=== PATIENT | male | born 1955 | race Caucasian/White ===

== ENCOUNTER 2023-10-30 17:27 | Emergency (ER) | payer MEDICARE, OTHER ==
[~2023-10-30] VITALS: Ht 182.9 cm; Wt 78.0 kg
[2023-10-30 18:01] VITALS: TEMP 98.1
[2023-10-30 18:17] LABS: BASOPHILS % (AUTO) 0.4 % (0.0-2.0); EOSINOPHILS # (AUTO) 0.1 K/uL (0.0-0.7); EOSINOPHILS % (AUTO) 0.5 % (0.0-6.0); HEMATOCRIT 40 % (39-51); HEMOGLOBIN 13.8 g/dL (13.5-17.5); LYMPHOCYTES # (AUTO) 1.2 K/uL (0.8-4.8); LYMPHOCYTES % (AUTO) 11.9 % (20.0-44.0); MEAN CORPUSCULAR HEMOGLOBIN 33 PG (26.0-33.0); MEAN CORPUSCULAR HGB CONC 34 g/dl (31.0-36.0); MEAN CORPUSCULAR VOLUME 95 fL (80-96); MONOCYTES # (AUTO) 0.6 K/uL (0.1-1.30); MONOCYTES % (AUTO) 6.1 % (2.0-12.0); NEUTROPHILS % (AUTO) 81.1 % (43.0-81.0); PLATELET COUNT (AUTO) 222 K/uL (150-450); RED BLOOD CELL COUNT(AUTO) 4.23 MIL/uL (4.5-6.0); RED CELL DISTRIBUTION WIDTH 13.9 % (11.5-15.0); WHITE BLOOD COUNT (AUTO) 9.8 K/uL (4.3-11.0)
[2023-10-30 19:36] LABS: CALCIUM, SERUM 7.3 mg/dL (8.5-10.1); CARBON DIOXIDE 27 mmol/L (21-32); CHLORIDE 104 mmol/L (98-107); GLUCOSE 88 mg/dL (74-106); POTASSIUM 4.3 mmol/L (3.5-5.1); SODIUM SERUM 139 mmol/L (136-145); UREA NITROGEN, BLOOD 16 mg/dL (7-18)
[2023-10-30 19:41] LABS: ALANINE AMINOTRANSFERASE 28 U/L (12-78); ALBUMIN 3.4 g/dL (3.4-5.0); ALCOHOL, BLOOD < 3 mg/dL (0-10); ALKALINE PHOSPHATASE 51 U/L (46-116); ASPARTATE AMINOTRANSFERASE 17 U/L (15-37); BILIRUBIN,DIRECT 0.2 mg/dL (0.0-0.2); BILIRUBIN,TOTAL 0.9 mg/dL (0.2-1.0); TOTAL PROTEIN, SERUM 7.1 g/dL (6.4-8.2)
[2023-10-30 19:42] LABS: ACETAMINOPHEN 0 ug/ml (10-30); SALICYLATE < 2.0 mg/dL (2.8-20.0)
[2023-10-30] MEDS ORDERED: AMOX-430 PO (20:56)
[2023-10-31 00:20] VITALS: BP 17/87; O2SAT 99
== END 2023-10-31 00:21 ==
LOC: ER 17:27
DX: S02.2XXA Fracture of nasal bones, initial encounter for closed fracture (principal); F03.90 Unspecified dementia, unspecified severity, without behavioral disturbance, psychotic disturbance, mood disturbance, and anxiety; I10 Essential (primary) hypertension; J44.9 Chronic obstructive pulmonary disease, unspecified; W18.39XA Other fall on same level, initial encounter; Y93.89 Activity, other specified; Y92.89 Other specified places as the place of occurrence of the external cause; Y99.8 Other external cause status
CPT/HCPCS: 36415; 70450-TC; 70486-TC; 71045-TC; 72125-TC; 80048-TC; 80076-TC; 85025-TC; G0480

== ENCOUNTER 2024-08-23 17:00 | Inpatient (IN) | payer MEDICARE, OTHER ==
[~2024-08-23] VITALS: Ht 180.3 cm; Wt 72.6 kg
[~2024-08-23 17:00] MED LIST: AMOX-430 PO
[2024-08-23 17:37] LABS: BASOPHILS % (AUTO) 0.6 % (0.0-2.0); EOSINOPHILS # (AUTO) 0.4 K/uL (0.0-0.7); EOSINOPHILS % (AUTO) 5.5 % (0.0-6.0); HEMATOCRIT 38 % (39-51); HEMOGLOBIN 12.6 g/dL (13.5-17.5); LYMPHOCYTES # (AUTO) 1.4 K/uL (0.8-4.8); LYMPHOCYTES % (AUTO) 22.1 % (20.0-44.0); MEAN CORPUSCULAR HEMOGLOBIN 32 PG (26.0-33.0); MEAN CORPUSCULAR HGB CONC 34 g/dl (31.0-36.0); MEAN CORPUSCULAR VOLUME 97 fL (80-96); MONOCYTES # (AUTO) 0.4 K/uL (0.1-1.30); MONOCYTES % (AUTO) 6.4 % (2.0-12.0); NEUTROPHILS # (AUTO) 4.2 K/uL (1.8-8.9); NEUTROPHILS % (AUTO) 65.4 % (43.0-81.0); PLATELET COUNT (AUTO) 194 K/uL (150-450); RED BLOOD CELL COUNT(AUTO) 3.89 MIL/uL (4.5-6.0); RED CELL DISTRIBUTION WIDTH 14.5 % (11.5-15.0); WHITE BLOOD COUNT (AUTO) 6.3 K/uL (4.3-11.0)
[2024-08-23 17:52] LABS: CALCIUM, SERUM 8.7 mg/dL (8.5-10.1); CARBON DIOXIDE 28 mmol/L (21-32); CHLORIDE 108 mmol/L (98-107); GLUCOSE 105 mg/dL (74-106); POTASSIUM 4.1 mmol/L (3.5-5.1); SODIUM SERUM 143 mmol/L (136-145); UREA NITROGEN, BLOOD 27 mg/dL (7-18)
[2024-08-23 17:57] LABS: ACETAMINOPHEN <10 ug/ml (10-30); ALANINE AMINOTRANSFERASE 26 U/L (12-78); ALBUMIN 3.3 g/dL (3.4-5.0); ALCOHOL, BLOOD < 3 mg/dL (0-10); ALKALINE PHOSPHATASE 46 U/L (46-116); ASPARTATE AMINOTRANSFERASE 29 U/L (15-37); BILIRUBIN,DIRECT 0.1 mg/dL (0.0-0.2); BILIRUBIN,TOTAL 0.3 mg/dL (0.2-1.0); SALICYLATE < 0.2 mg/dL (2.8-20.0); TOTAL PROTEIN, SERUM 6.7 g/dL (6.4-8.2)
[2024-08-23] MEDS ORDERED: PANT40TA2 PO (18:04)
[2024-08-23] MEDS ORDERED: RISP1TAB7 PO (18:04)
[2024-08-23] MEDS ORDERED: BENZ1TAB7 PO (18:04)
[2024-08-23] MEDS ORDERED: RISP2TAB5 PO (18:04)
[2024-08-23] MEDS ORDERED: MULT-754 PO (18:04)
[2024-08-23] MEDS ORDERED: CLON0.5T4 PO (18:04)
[2024-08-23] MEDS ORDERED: LOPE2CAP40 PO (18:04)
[2024-08-23] MEDS ORDERED: ACET-868 PO (18:04)
[2024-08-23] MEDS ORDERED: DIVA-78 PO (18:04)
[2024-08-23] MEDS ORDERED: DIPH25TA25 PO (18:04)
[2024-08-23] MEDS: OLANZAPINE 10 MG VIAL IM ONE (19:30)
[2024-08-23] MEDS ORDERED: OLANZAPINE 10 MG VIAL IM ONE (19:32)
[2024-08-23 19:34] LABS: APPEARANCE,URINE SLIGHTLY CLOUDY (CLEAR); BILIRUBIN,URINE NEGATIVE (NEGATIVE); BLOOD, URINE TRACE-INTA Ery/uL (NEGATIVE); COLOR,URINE YELLOW (YELLOW); KETONES,URINE NEGATIVE (NEGATIVE); LEUKOCYTE ESTERASE ,URINE NEGATIVE (NEGATIVE); NITRITE, URINE NEGATIVE (NEGATIVE); PH,URINE 7.5 (5.0-8.0); PROTEIN,URINE NEGATIVE (NEGATIVE); UGLUCOSE NEGATIVE (NEGATIVE)
[2024-08-23 19:40] LABS: ADD URINE CULTURE NO; BACTERIA,URINE None seen /HPF (None Seen); SQUAMOUS EPITHELIAL CELL,UR 0-2 /HPF (None Seen); URINE AMORPHOUS PHOSPHATES Few /HPF (None Seen); WBC,URINE 0-2 /HPF (0-3)
[2024-08-23 19:44] LABS: AMPHETAMINE, URINE NEGATIVE (NEGATIVE); BARBITURATE, URINE NEGATIVE (NEGATIVE); BENZODIAZEPINE, URINE NEGATIVE (NEGATIVE); CANNABINOID, URINE NEGATIVE (NEGATIVE); COCCAINE, URINE NEGATIVE (NEGATIVE); OPIATE, URINE NEGATIVE (NEGATIVE); PHENCYCLIDINE SCREEN,URINE NEGATIVE (NEGATIVE)
[2024-08-24] MEDS ORDERED: MAGNESIUM HYDROXIDE 30 ML UDC PO PRN (00:30)
[2024-08-24] MEDS ORDERED: MAG HYDROX/AL HYDROX/SIMETH 30 ML UDC PO PRN (00:30)
[2024-08-24] MEDS ORDERED: LORAZEPAM 0.5 MG TABLET PO PRN (00:30)
[2024-08-24] MEDS ORDERED: TEMAZEPAM 7.5 MG CAPSULE PO PRN (00:30)
[2024-08-24 01:23] VITALS: BP 129/86; TEMP 98; O2SAT 98
[2024-08-24] MEDS: BLOOD SUGAR DIAGNOSTIC 1 EACH STRIP IN ONE (01:52)
[2024-08-24] MEDS ORDERED: PERMETHRIN 5% CRM 60 GM TUBE TP ONE (05:30)
[2024-08-24 08:00] VITALS: BP 166/71; TEMP 97.6; O2SAT 96
[2024-08-24] MEDS: OLANZAPINE 10 MG VIAL IM ONE (08:16)
[2024-08-24] MEDS: MULTIVIT W/MINERALS 1 TAB TABLET PO SCH (09:00)
[2024-08-24] MEDS: PERMETHRIN 5% CRM 60 GM TUBE TP ONE (09:00)
[2024-08-24] MEDS: PANTOPRAZOLE 40 MG TABLET.DR PO SCH (09:00)
[2024-08-24] MEDS: LORAZEPAM 0.5 MG TABLET PO PRN (14:00)
[2024-08-24] MEDS ORDERED: clonazePAM 0.5 MG TABLET PO PRN (14:30)
[2024-08-24] MEDS: DIVALPROEX SODIUM 500 MG TABLET.DR PO SCH (14:33)
[2024-08-24 16:00] VITALS: BP 119/77; TEMP 97.8; O2SAT 95
[2024-08-24] MEDS: risperiDONE 1 MG TABLET PO SCH ×2 (16:47→21:15)
[2024-08-24] MEDS: clonazePAM 0.5 MG TABLET PO SCH (16:48)
[2024-08-24 20:00] VITALS: BP 113/86; TEMP 97.9; O2SAT 98
[2024-08-25 08:00] VITALS: BP 188/96; TEMP 97.8; O2SAT 97
[2024-08-25 08:27] LABS: BASOPHILS % (AUTO) 0.4 % (0.0-2.0); EOSINOPHILS # (AUTO) 0.2 K/uL (0.0-0.7); EOSINOPHILS % (AUTO) 2.7 % (0.0-6.0); HEMATOCRIT 41 % (39-51); HEMOGLOBIN 13.6 g/dL (13.5-17.5); LYMPHOCYTES # (AUTO) 1.6 K/uL (0.8-4.8); LYMPHOCYTES % (AUTO) 20.5 % (20.0-44.0); MEAN CORPUSCULAR HEMOGLOBIN 32 PG (26.0-33.0); MEAN CORPUSCULAR HGB CONC 33 g/dl (31.0-36.0); MEAN CORPUSCULAR VOLUME 97 fL (80-96); MONOCYTES # (AUTO) 0.6 K/uL (0.1-1.30); MONOCYTES % (AUTO) 7.7 % (2.0-12.0); NEUTROPHILS # (AUTO) 5.5 K/uL (1.8-8.9); NEUTROPHILS % (AUTO) 68.7 % (43.0-81.0); PLATELET COUNT (AUTO) 236 K/uL (150-450); RED BLOOD CELL COUNT(AUTO) 4.26 MIL/uL (4.5-6.0); RED CELL DISTRIBUTION WIDTH 14.6 % (11.5-15.0)
[2024-08-25 08:45] LABS: CREATININE 0.9 mg/dL (0.6-1.3); POTASSIUM 3.9 mmol/L (3.5-5.1)
[2024-08-25 16:00] VITALS: BP 127/84; TEMP 98; O2SAT 100
[2024-08-25] MEDS: DIVALPROEX SODIUM 125 MG CAP.SPRINK PO SCH (16:46)
[2024-08-25 21:15] VITALS: BP_SYST 112; BP_SYST 118; BP_DIAS 59; BP_DIAS 68; TEMP 98.2; O2SAT 99
[2024-08-26 08:00] VITALS: BP 106/77; TEMP 97.8; O2SAT 100
[2024-08-26] MEDS: MIDODRINE HCL (5MG) 5 MG TABLET PO SCH (13:21)
[2024-08-26 16:00] VITALS: BP 110/80; TEMP 97.8; O2SAT 96
[2024-08-26] MEDS: LORAZEPAM 0.5 MG TABLET PO PRN (16:45)
[2024-08-26 20:19] VITALS: BP 123/82; TEMP 97.9; O2SAT 97
[2024-08-26] MEDS: MUPIROCIN OINT 2% 22 GM TUBE NS SCH (21:00)
[2024-08-26] MEDS: TEMAZEPAM 7.5 MG CAPSULE PO PRN (21:18)
[2024-08-27 08:00] VITALS: BP 115/76; TEMP 98; O2SAT 100
[2024-08-27 15:38] VITALS: BP 104/74; TEMP 98.7; O2SAT 98
[2024-08-27 20:00] VITALS: BP 150/100; TEMP 98.6; O2SAT 97
[2024-08-28 08:00] VITALS: BP 150/90; TEMP 97.8; O2SAT 98
[2024-08-28 16:00] VITALS: BP_SYST 128; TEMP 97.8; O2SAT 99
[2024-08-28 20:05] VITALS: BP 124/77; TEMP 97.9; O2SAT 96
[2024-08-29 16:23] VITALS: BP 129/74; TEMP 97.9; O2SAT 99
[2024-08-29 20:00] VITALS: BP 138/81; TEMP 98; O2SAT 100
[2024-08-30 08:00] VITALS: BP 118/71; TEMP 97.9; O2SAT 100
[2024-08-30 16:00] VITALS: BP 113/74; TEMP 98.7; O2SAT 100
[2024-08-30] MEDS: OLANZAPINE 2.5 MG TABLET PO SCH (17:18)
[2024-08-30 20:00] VITALS: BP 104/76; TEMP 98.1; O2SAT 100
[2024-08-30 20:42] VITALS: BP 104/76; TEMP 98.1; O2SAT 100
[2024-08-30] MEDS: OLANZAPINE 10 MG TABLET PO SCH (21:59)
[2024-08-31 08:00] VITALS: BP 128/71; TEMP 97.8; O2SAT 96
[2024-08-31] MEDS: NEOMY SULF/BACITRAC ZN/POLY 15 GM TUBE TP SCH (08:42)
[2024-08-31] MEDS: Z GUARD REMEDY 4 OZ OINT TP PRN (08:42)
[2024-08-31] MEDS: VITAMINS A AND D 56.7 GM TUBE TP SCH (08:43)
[2024-08-31 16:00] VITALS: BP 129/75; TEMP 98; O2SAT 100
[2024-08-31 19:55] VITALS: BP 122/73; TEMP 98.2; O2SAT 97
[2024-09-01 08:00] VITALS: BP 105/80; TEMP 98.1; O2SAT 99
[2024-09-01 16:00] VITALS: BP 128/72; TEMP 97.7; O2SAT 99
[2024-09-01 20:14] VITALS: BP 120/76; TEMP 98; O2SAT 98
[2024-09-01] MEDS: OLANZAPINE 5 MG TABLET PO SCH (21:35)
[2024-09-02 08:00] VITALS: BP 119/78; TEMP 97.8; O2SAT 100
[2024-09-02] MEDS: OLANZAPINE 5 MG TABLET PO SCH (13:01)
[2024-09-02 16:02] VITALS: BP 103/77; TEMP 97.6; O2SAT 98
[2024-09-02 22:50] VITALS: BP 127/83; TEMP 99.6
[2024-09-02 22:52] VITALS: BP 127/83; TEMP 97.6; O2SAT 98
[2024-09-03] MEDS: ACETAMINOPHEN 325 MG TABLET PO PRN (01:45)
[2024-09-03 08:00] VITALS: BP 130/69; TEMP 98.6; O2SAT 100
[2024-09-03 15:10] VITALS: BP 100/63; TEMP 98.6; O2SAT 98
[2024-09-03 20:00] VITALS: BP 147/90; TEMP 98; O2SAT 96
[2024-09-03 20:03] VITALS: BP 147/90; TEMP 98; O2SAT 96
[2024-09-04 08:00] VITALS: BP 126/51; TEMP 97.5; O2SAT 100
[2024-09-04 16:00] VITALS: BP 134/85; TEMP 98; O2SAT 98
[2024-09-04 19:52] VITALS: BP 136/95; TEMP 98.3; O2SAT 97
[2024-09-05 07:28] LABS: BASOPHILS # (AUTO) 0.1 K/uL (0.0-0.2); BASOPHILS % (AUTO) 0.8 % (0.0-2.0); EOSINOPHILS # (AUTO) 0.2 K/uL (0.0-0.7); EOSINOPHILS % (AUTO) 3.4 % (0.0-6.0); HEMATOCRIT 38 % (39-51); HEMOGLOBIN 12.7 g/dL (13.5-17.5); LYMPHOCYTES # (AUTO) 1.4 K/uL (0.8-4.8); LYMPHOCYTES % (AUTO) 20.3 % (20.0-44.0); MEAN CORPUSCULAR HEMOGLOBIN 33 PG (26.0-33.0); MEAN CORPUSCULAR HGB CONC 34 g/dl (31.0-36.0); MEAN CORPUSCULAR VOLUME 96 fL (80-96); MONOCYTES # (AUTO) 0.6 K/uL (0.1-1.30); MONOCYTES % (AUTO) 8.5 % (2.0-12.0); NEUTROPHILS # (AUTO) 4.7 K/uL (1.8-8.9); PLATELET COUNT (AUTO) 311 K/uL (150-450); RED CELL DISTRIBUTION WIDTH 13.6 % (11.5-15.0)
[2024-09-05 07:40] LABS: ALBUMIN 3.1 g/dL (3.4-5.0); BILIRUBIN,TOTAL 0.4 mg/dL (0.2-1.0); CALCIUM, SERUM 9.2 mg/dL (8.5-10.1); CREATININE 0.9 mg/dL (0.6-1.3); POTASSIUM 3.9 mmol/L (3.5-5.1); TOTAL PROTEIN, SERUM 7.4 g/dL (6.4-8.2)
[2024-09-05 08:00] VITALS: BP 136/74; TEMP 98.7; O2SAT 98
[2024-09-05 08:38] VITALS: BP 136/74
== END 2024-09-05 13:30 | DRG 885 ==
LOC: ER 17:04 → GPS 22:49
PROVIDERS: ADMIT Psychiatry & Neurology Psychosomatic Medicine; ATTEND Nurse Practitioner Acute Care
DX: F25.0 Schizoaffective disorder, bipolar type (principal); N18.9 Chronic kidney disease, unspecified; E44.1 Mild protein-calorie malnutrition; F03.918 Unspecified dementia, unspecified severity, with other behavioral disturbance; F03.94 Unspecified dementia, unspecified severity, with anxiety; G93.40 Encephalopathy, unspecified; F29 Unspecified psychosis not due to a substance or known physiological condition; D64.9 Anemia, unspecified; F41.9 Anxiety disorder, unspecified; I12.9 Hypertensive chronic kidney disease with stage 1 through stage 4 chronic kidney disease, or unspecified chronic kidney disease; E78.5 Hyperlipidemia, unspecified; K21.9 Gastro-esophageal reflux disease without esophagitis; J44.9 Chronic obstructive pulmonary disease, unspecified; F32.A Depression, unspecified; G47.00 Insomnia, unspecified; B86 Scabies; E88.09 Other disorders of plasma-protein metabolism, not elsewhere classified; L85.3 Xerosis cutis; Z79.899 Other long term (current) drug therapy; Z88.0 Allergy status to penicillin; S01.81XA Laceration without foreign body of other part of head, initial encounter; X58.XXXA Exposure to other specified factors, initial encounter; W19.XXXA Unspecified fall, initial encounter; Y92.009 Unspecified place in unspecified non-institutional (private) residence as the place of occurrence of the external cause
CPT/HCPCS: 36415; 80048-TC; 80053-TC; 80061-TC; 80076-TC; 80164-TC; 81001; 82962-TC; 85025-TC; 87081-TC; 97110-TC; 97116-TC; 97530-TC; G0480; J3490

== ENCOUNTER 2024-08-29 06:26 | Emergency (ER) | payer MEDICARE, OTHER ==
[~2024-08-29] VITALS: Ht 167.6 cm; Wt 74.8 kg
[~2024-08-29 06:26] MED LIST changes: +ACET-868 PO; -AMOX-430 PO; +BENZ1TAB7 PO; +CLON0.5T4 PO; +DIPH25TA25 PO; +DIVA-78 PO; +LOPE2CAP40 PO; +MULT-754 PO; +PANT40TA2 PO; +RISP1TAB7 PO; +RISP2TAB5 PO
[2024-08-29] MEDS: LIDOCAINE 1%-EPI 1:100,000 20 ML VIAL TP ONE (06:30)
[2024-08-29] MEDS: TDAP [DIPH/PERTUSSIS/TET] 0.5 ML VIAL IM ONE (06:30)
[2024-08-29] MEDS ORDERED: TDAP [DIPH/PERTUSSIS/TET] 0.5 ML VIAL IM ONE (06:35)
[2024-08-29] MEDS ORDERED: LIDOCAINE 1%-EPI 1:100,000 20 ML VIAL ONE (06:52)
[2024-08-29 11:30] VITALS: BP 124/74; TEMP 97.1; O2SAT 98
== END 2024-08-29 11:31 | disposition admitted as inpatient to this hospital (09) ==
LOC: ER 06:30
DX: S01.81XA Laceration without foreign body of other part of head, initial encounter (principal); S60.012A Contusion of left thumb without damage to nail, initial encounter; I12.9 Hypertensive chronic kidney disease with stage 1 through stage 4 chronic kidney disease, or unspecified chronic kidney disease; E78.5 Hyperlipidemia, unspecified; N18.9 Chronic kidney disease, unspecified; F03.94 Unspecified dementia, unspecified severity, with anxiety; F25.9 Schizoaffective disorder, unspecified; I70.90 Unspecified atherosclerosis; J44.9 Chronic obstructive pulmonary disease, unspecified; Z79.899 Other long term (current) drug therapy; Z88.0 Allergy status to penicillin; W01.0XXA Fall on same level from slipping, tripping and stumbling without subsequent striking against object, initial encounter; Y93.89 Activity, other specified; Y92.89 Other specified places as the place of occurrence of the external cause; Y99.8 Other external cause status
CPT/HCPCS: 12013; 70450; 72125; 73130; 90471; 90715; 99285; J3490

== ENCOUNTER 2024-10-06 17:37 | Emergency (ER) | payer MEDICARE, OTHER ==
[~2024-10-06] VITALS: Ht 167.6 cm; Wt 74.8 kg
[2024-10-06] MEDS ORDERED: LIDOCAINE HCL/MPF 1% 30 ML VIAL IJ ONE (18:08)
[2024-10-06 18:43] VITALS: BP 154/91; TEMP 98.1; O2SAT 97
[2024-10-06 18:47] LABS: BASOPHILS % (AUTO) 0.3 % (0.0-2.0); EOSINOPHILS % (AUTO) 0.1 % (0.0-6.0); HEMATOCRIT 41 % (39-51); LYMPHOCYTES # (AUTO) 0.6 K/uL (0.8-4.8); LYMPHOCYTES % (AUTO) 9.5 % (20.0-44.0); MEAN CORPUSCULAR HEMOGLOBIN 33 PG (26.0-33.0); MEAN CORPUSCULAR HGB CONC 35 g/dl (31.0-36.0); MEAN CORPUSCULAR VOLUME 96 fL (80-96); MONOCYTES # (AUTO) 0.4 K/uL (0.1-1.30); MONOCYTES % (AUTO) 6.3 % (2.0-12.0); NEUTROPHILS % (AUTO) 83.8 % (43.0-81.0); PLATELET COUNT (AUTO) 195 K/uL (150-450); RED BLOOD CELL COUNT(AUTO) 4.23 MIL/uL (4.5-6.0); RED CELL DISTRIBUTION WIDTH 13.7 % (11.5-15.0)
[2024-10-06 18:51] LABS: CALCIUM, SERUM 9.7 mg/dL (8.5-10.1); CARBON DIOXIDE 32 mmol/L (21-32); CHLORIDE 104 mmol/L (98-107); CREATININE 1.2 mg/dL (0.6-1.3); GLUCOSE 109 mg/dL (74-106); POTASSIUM 4.6 mmol/L (3.5-5.1); SODIUM SERUM 143 mmol/L (136-145); UREA NITROGEN, BLOOD 34 mg/dL (7-18)
[2024-10-06 19:01] LABS: ALANINE AMINOTRANSFERASE 21 U/L (12-78); ALBUMIN 3.8 g/dL (3.4-5.0); ALKALINE PHOSPHATASE 68 U/L (46-116); ASPARTATE AMINOTRANSFERASE 26 U/L (15-37); BILIRUBIN,DIRECT 0.1 mg/dL (0.0-0.2); BILIRUBIN,TOTAL 0.4 mg/dL (0.2-1.0); NT-PRO BNP 241 pg/mL (0-125); TOTAL PROTEIN, SERUM 8.6 g/dL (6.4-8.2)
[2024-10-06] MEDS ORDERED: LORAZEPAM INJ 2 MG/ML VIAL ONE (19:24)
[2024-10-06] MEDS: LORAZEPAM INJ 2 MG/ML VIAL IV ONE (19:28)
== END 2024-10-07 03:57 ==
LOC: ER 17:46
DX: S01.81XA Laceration without foreign body of other part of head, initial encounter (principal); I12.9 Hypertensive chronic kidney disease with stage 1 through stage 4 chronic kidney disease, or unspecified chronic kidney disease; E78.5 Hyperlipidemia, unspecified; N18.9 Chronic kidney disease, unspecified; F03.94 Unspecified dementia, unspecified severity, with anxiety; F25.9 Schizoaffective disorder, unspecified; J44.9 Chronic obstructive pulmonary disease, unspecified; Z79.899 Other long term (current) drug therapy; Z88.0 Allergy status to penicillin; W18.30XA Fall on same level, unspecified, initial encounter; Y93.89 Activity, other specified; Y92.89 Other specified places as the place of occurrence of the external cause; Y99.8 Other external cause status
CPT/HCPCS: 12013; 36415; 70450; 70486; 71045; 72125; 72170; 80048; 80076; 82962; 83880; 84484; 85025; 93005; 96374; 99285; A6403; J2060; J3490